=== PATIENT | male | born 1995 | race Caucasian/White ===

== ENCOUNTER 2021-07-04 10:29 | Emergency (ER) | payer SELFPAY ==
--- NOTE | 2021-07-04 11:02 | EDM.PDOC ---
ED HPI GENERAL MEDICAL PROBLEM - General Chief Complaint: Lower Extremity Injury/Pain Stated Complaint: SLIPPED AND INJURED BACK AND LEFT ANKLE Time Seen by Provider: 07/04/21 10:45 Source of Information: Reports: Patient History Limitations: Reports: No Limitations - History of Present Illness INITIAL COMMENTS - FREE TEXT/NARRATIVE: patient presented to the ER with a c/o LE pain after he fell down the stairs. He reports that he slipped over the last few steps - twisted his left foot and landed on his lower back and buttock. Was able to stand up and walk but with some discomfort. Able to put weight on it. This occurred 3 hrs ago. no head injury. Didn't take anything for pain and doesn't want anything. Onset: Sudden Duration: Hour(s): (3) Location: Reports: Back, Lower Extremity, Left Quality: Reports: Dull Severity: Mild Improves with: Reports: Immobilization Worsens with: Reports: Movement Left Ankle Pain Score (Numeric/FACES): 6 - Related Data Allergies Allergy/AdvReac Type Severity Reaction Status Date / Time Sulfa (Sulfonamide Allergy Redness Verified 07/04/21 11:11 Antibiotics) Home Meds: Home Meds NK [No Known Home Meds] 07/04/21 [History] Review of Systems - Review of Systems Review Of Systems: See Below Constitutional: Reports: No Symptoms Respiratory: Reports: No Symptoms Cardiovascular: Reports: No Symptoms GI/Abdominal: Reports: No Symptoms Skin: Reports: No Symptoms Neurological: Reports: No Symptoms Psychiatric: Reports: No Symptoms ED EXAM, GENERAL - Physical Exam Exam: See Below Exam Limited By: No Limitations General Appearance: Alert, WD/WN, No Apparent Distress Eye Exam: Bilateral Eye: EOMI Head: Atraumatic Respiratory/Chest: No Respiratory Distress Cardiovascular: Normal Peripheral Pulses GI/Abdominal: Normal Bowel Sounds Back Exam: Normal Inspection, Decreased Range of Motion, Muscle Spasm, Paraspinal Tenderness. No: Vertebral Tenderness Extremities: Other (left foot pain, no deformity, limied ROM due to pain. ) Neurological: Alert Course - Vital Signs Last Recorded V/S: Last Vital Signs Temp 36.6 C 07/04/21 10:53 Pulse 62 07/04/21 10:53 Resp 16 07/04/21 10:53 BP 124/88 07/04/21 10:53 Pulse Ox 98 07/04/21 10:53 - Orders/Labs/Meds Orders: Active Orders 24 hr Category Date Time Status Ankle Min 3V Lt [CR] Stat Exams 07/04/21 10:54 Taken Lumbar Spine 2 or 3V [CR] Stat Exams 07/04/21 10:53 Ordered - Re-Assessments/Exams Free Text/Narrative Re-Assessment/Exam: xrays left ankle - no e/o dislocation of fracture xrays lumbar spine - no acute findings Departure - Departure Time of Disposition: 11:59 Disposition: Home, Self-Care 01 Condition: Good Clinical Impression: Ankle sprain Qualifiers: Encounter type: initial encounter Involved ligament of ankle: other ligament Laterality: left Qualified Code(s): S93.492A - Sprain of other ligament of left ankle, initial encounter Low back pain Qualifiers: Chronicity: acute Back pain laterality: bilateral Sciatica presence: without sciatica Qualified Code(s): M54.5 - Low back pain - Discharge Information *PRESCRIPTION DRUG MONITORING PROGRAM REVIEWED*: Not Applicable *COPY OF PRESCRIPTION DRUG MONITORING REPORT IN PATIENT DYLLAN: Not Applicable Instructions: Ankle Sprain, [id number] Referrals: PCP,None [Primary Care Provider] - Forms: ED Department Discharge Additional Instructions: - apply ice on the affected area - take tylenol for pain as needed - follow up with your PCP in 5-10 days if any concerns Sepsis Event Note (ED) - Focused Exam Vital Signs: Vital Signs Temp Pulse Resp BP Pulse Ox 07/04/21 10:53 36.6 C 62 16 124/88 98 - Problem List & Annotations (1) Ankle sprain SNOMED Code(s): 12070879 Code(s): S93.409A - SPRAIN OF UNSP LIGAMENT OF UNSPECIFIED ANKLE, INIT ENCNTR Status: Acute Priority: Low Current Visit: Yes Qualifiers: Encounter type: initial encounter Involved ligament of ankle: other ligament Laterality: left Qualified Code(s): S93.492A - Sprain of other ligament of left ankle, initial encounter (2) Low back pain SNOMED Code(s): 803601089 Code(s): M54.5 - LOW BACK PAIN Status: Acute Priority: Low Current Visit: Yes Qualifiers: Chronicity: acute Back pain laterality: bilateral Sciatica presence: without sciatica Qualified Code(s): M54.5 - Low back pain - Problem List Review Problem List Initiated/Reviewed/Updated: Yes - My Orders Last 24 Hours: My Active Orders 07/04/21 10:53 Lumbar Spine 2 or 3V [CR] Stat 07/04/21 10:54 Ankle Min 3V Lt [CR] Stat - Assessment/Plan Last 24 Hours: My Active Orders 07/04/21 10:53 Lumbar Spine 2 or 3V [CR] Stat 07/04/21 10:54 Ankle Min 3V Lt [CR] Stat Plan: - apply ice on the affected area - take tylenol for pain as needed - follow up with your PCP in 5-10 days if any concerns
--- NOTE | 2021-07-05 08:10 | CR ---
DATE OF SERVICE: 07/04/21 CLINICAL DATA: fell down LUMBAR SPINE: No priors. There is straightening of the normal lumbar lordosis on the lateral view. This is most likely positional or due to muscle spasm. There is very slight anterior wedging of the L1, L2, and L3 vertebral bodies. This is probably congenital. No acute fracture or dislocation. No lytic or blastic bone lesions. The disc spaces appear relatively intact. There is a moderate amount of stool in the right colon. [id number] [facility]
--- NOTE | 2021-07-05 08:12 | CR ---
DATE OF SERVICE: 07/04/21 CLINICAL DATA: fell LEFT ANKLE: No acute fracture or dislocation. No lytic or blastic bone lesions. [id number] [facility]
== END 2021-07-04 12:00 | disposition home or self-care (01) ==
LOC: LB.ED 10:29
DX: S93.492A Sprain of other ligament of left ankle, initial encounter (principal); M54.5 Low back pain; Z88.2 Allergy status to sulfonamides; W10.9XXA Fall (on) (from) unspecified stairs and steps, initial encounter
CPT/HCPCS: 72100; 73610-LT; 99283-25

== ENCOUNTER 2021-10-21 14:15 | Emergency (ER) | payer SELFPAY ==
--- NOTE | 2021-10-21 14:44 | EDM.PDOC ---
ED HPI GENERAL MEDICAL PROBLEM - General Chief Complaint: ENT Problem Stated Complaint: sinus infection Time Seen by Provider: 10/21/21 14:30 Source of Information: Reports: Patient, RN Notes Reviewed History Limitations: Reports: No Limitations - History of Present Illness INITIAL COMMENTS - FREE TEXT/NARRATIVE: This patient presents to the emergency department for evaluation of runny nose and cough. He states he has been sick for 3 days and it started with a runny nose and sneezing. He now has a coarse cough with it. He is also complaining of some facial tenderness. He has not had a fever with this. He denies ear pain, sore throat, chest pain. He does not have a headache, appetite is fair and he is drinking fluids well. Has had no vomiting or diarrhea. He denies other symptoms or concerns. - Related Data Allergies Allergy/AdvReac Type Severity Reaction Status Date / Time Sulfa (Sulfonamide Allergy Redness Verified 10/21/21 14:35 Antibiotics) Home Meds: Home Meds NK [No Known Home Meds] 07/04/21 [History] Past Medical History - Past Health History Medical/Surgical History: Denies Medical/Surgical History Other Musculoskeletal History: previous back sprain several years ago Social & Family History - Family History Family Medical History: No Pertinent Family History - Caffeine Use Caffeine Use: Reports: None ED ROS ENT - Review of Systems Review Of Systems: Comprehensive ROS is negative, except as noted in HPI. ED EXAM, ENT - Physical Exam Exam: See Below Exam Limited By: No Limitations General Appearance: Alert, No Apparent Distress Eye Exam: Bilateral Eye: EOMI, Normal Inspection, PERRL Ears: Normal External Exam, Normal Canal, Hearing Grossly Normal, Normal TMs Nose: Normal Inspection, Other (Thick cloudy nasal drainage) Mouth/Throat: Normal Inspection, Pharyngeal Erythema (Mild), Throat Pain. No: Throat Swelling, Tonsillar Erythema, Tonsillar Exudates, Tonsillar Swelling Head: Atraumatic, Normocephalic Neck: Normal Inspection, Supple, Non-Tender, Full Range of Motion. No: Lymphadenopathy (R), Lymphadenopathy (L) Respiratory/Chest: No Respiratory Distress, Lungs Clear, Normal Breath Sounds, N o Accessory Muscle Use Cardiovascular: Regular Rate, Rhythm Course - Vital Signs Last Recorded V/S: Last Vital Signs Temp 36.9 C 10/21/21 14:33 Pulse 82 10/21/21 14:33 Resp 20 01/01/22 14:33 BP 121/89 10/21/21 14:33 Pulse Ox 100 10/21/21 14:33 - Orders/Labs/Meds Labs: Laboratory Tests 10/21/21 Range/Units 14:40 SARS-CoV-2 RNA (NAYE) Negative (NEGATIVE) - Re-Assessments/Exams Free Text/Narrative Re-Assessment/Exam: This patient presents to the emergency department for evaluation of nasal congestion and a cough. This is consistent with an upper respiratory tract infections.. There are no signs at this point of other serious bacterial infection such as otitis media, retropharyngeal abscess, epiglottitis, peritonsillar abscess, strep pharyngitis, pneumonia, sinusitis, meningitis, or bacteremia. A swab for Covid was negative. Given his clear lungs, lack of fever, no hypoxia no respiratory distress I do not feel that he needs a chest x- ray at this point as the probability of pneumonia is very unlikely. There are no concerning gastrointestinal problems and no signs of dehydration. He should follow-up with his primary care provider as needed or return to the emergency department if he gets worse. 10/22/21 10:29 Departure - Departure Time of Disposition: 14:46 Disposition: Home, Self-Care 01 Condition: Good Clinical Impression: URI (upper respiratory infection) - Discharge Information *PRESCRIPTION DRUG MONITORING PROGRAM REVIEWED*: Not Applicable *COPY OF PRESCRIPTION DRUG MONITORING REPORT IN PATIENT DYLLAN: Not Applicable Instructions: Viral Respiratory Infection, [id number] Referrals: PCP,None [Primary Care Provider] - Forms: ED Department Discharge Care Plan Goals: We will call with results of covid test. Sepsis Event Note (ED) - Evaluation Sepsis Screening Result: No Definite Risk
== END 2021-10-21 15:00 | disposition home or self-care (01) ==
LOC: LB.ED 14:15
DX: J06.9 Acute upper respiratory infection, unspecified (principal); Z88.2 Allergy status to sulfonamides; Z20.822 Contact with and (suspected) exposure to COVID-19
CPT/HCPCS: 99283; U0002

== ENCOUNTER 2022-03-06 10:42 | Emergency (ER) | payer SELFPAY ==
[2022-03-06 11:00] VITALS: BP 117/85; PULSE 80
== END 2022-03-06 11:16 | disposition home or self-care (01) ==
LOC: LB.ED 10:42
DX: H65.23 Chronic serous otitis media, bilateral (principal); Z88.2 Allergy status to sulfonamides
CPT/HCPCS: 99281; 99282

== ENCOUNTER 2022-04-09 08:29 | Emergency (ER) | payer SELFPAY | END 2022-04-09 09:05 | disposition home or self-care (01) | LOC: LB.ED 08:29 | DX: R21 Rash and other nonspecific skin eruption (principal); Z88.2 Allergy status to sulfonamides; W57.XXXA Bitten or stung by nonvenomous insect and other nonvenomous arthropods, initial encounter | CPT/HCPCS: 99281; 99282 ==

== ENCOUNTER 2022-06-08 07:09 | Emergency (ER) | payer SELFPAY ==
[2022-06-08] MEDS: Ketorolac 10 MG Tab PO ONE (07:39)
== END 2022-06-08 07:46 | disposition home or self-care (01) ==
LOC: LB.ED 07:09
DX: S46.911A Strain of unspecified muscle, fascia and tendon at shoulder and upper arm level, right arm, initial encounter (principal); Z88.2 Allergy status to sulfonamides; X50.0XXA Overexertion from strenuous movement or load, initial encounter
CPT/HCPCS: 99283; A9270; 99281

== ENCOUNTER 2022-06-09 11:43 | Emergency (ER) | payer SELFPAY | END 2022-06-09 12:09 | disposition home or self-care (01) | LOC: LB.ED 11:43 | DX: F41.9 Anxiety disorder, unspecified (principal); Z88.2 Allergy status to sulfonamides | CPT/HCPCS: 99281; 99283 ==

== ENCOUNTER 2022-06-18 18:55 | Emergency (ER) | payer SELFPAY ==
[2022-06-18] MEDS: HYDROmorphone 2 MG/ML SDV IVPUSH ONE (19:43)
[2022-06-18] MEDS: HYDROmorphone 2 MG/ML Syringe ONE (19:43)
[2022-06-18 19:52] LABS: ESTIMATED GFR 99 mL/min (>60)
[2022-06-18] MEDS ORDERED: Dextrose 5%-0.9% NaCl with KCl 1,000 ML IV SCH (20:50)
[2022-06-18] MEDS: D5 1/2 NS w/ 20 mEq/L KCl 1,000 ML IV SCH (20:55)
[2022-06-18] MEDS: Ondansetron 4 MG/2 ML SDV IVPUSH ONE (21:20)
[2022-06-18] MEDS: D5 1/2 NS w/ 20 mEq/L KCl 1,000 ML ONE (21:31)
[2022-06-18] MEDS: Ondansetron 4 MG/2 ML SDV ONE (21:41)
[2022-06-18] MEDS ORDERED: HYDROmorphone 2 MG/ML Syringe IVPUSH PRN (22:50)
[2022-06-18] MEDS ORDERED: Ondansetron 4 MG/2 ML SDV IVPUSH PRN (22:50)
== END 2022-06-19 08:10 | disposition home or self-care (01) ==
LOC: LB.ED 18:55
DX: R10.10 Upper abdominal pain, unspecified (principal); R11.2 Nausea with vomiting, unspecified
CPT/HCPCS: 36415; 71045; 74178; 80053; 81001; 82150; 83690; 85025; 96365; 96366; 96375; 99282; 99284-25; J1170; J2405; J3480

== ENCOUNTER 2023-02-28 18:28 | Emergency (ER) | payer SELFPAY | END 2023-02-28 19:25 | disposition home or self-care (01) | LOC: LB.ED 18:28 | DX: R04.0 Epistaxis (principal); R51.9 Headache, unspecified; Z88.2 Allergy status to sulfonamides | CPT/HCPCS: 99282; 99283 ==

== ENCOUNTER 2023-03-11 11:24 | Emergency (ER) | payer SELFPAY | END 2023-03-11 11:52 | disposition home or self-care (01) | LOC: LB.ED 11:24 | DX: M60.9 Myositis, unspecified (principal); Z88.2 Allergy status to sulfonamides | CPT/HCPCS: 99283 ==

== ENCOUNTER 2023-03-13 21:48 | Emergency (ER) | payer SELFPAY ==
[2023-03-13] MEDS ORDERED: methylPREDNISolone Sodium Succinate 125 MG/2 ML SDV IM ONE (22:07)
[2023-03-13] MEDS ORDERED: methylPREDNISolone Sodium Succinate 125 MG/2 ML SDV ONE (22:09)
== END 2023-03-13 22:17 | disposition home or self-care (01) ==
LOC: LB.ED 21:48
DX: S40.869A Insect bite (nonvenomous) of unspecified upper arm, initial encounter (principal); S80.869A Insect bite (nonvenomous), unspecified lower leg, initial encounter; Z88.2 Allergy status to sulfonamides; W57.XXXA Bitten or stung by nonvenomous insect and other nonvenomous arthropods, initial encounter
CPT/HCPCS: 96372; 99281; J2930

== ENCOUNTER 2023-03-16 11:53 | Emergency (ER) | payer SELFPAY ==
[2023-03-16] MEDS ORDERED: Ondansetron 4 MG Tab.DIS PO ONE (12:41)
== END 2023-03-16 13:27 | disposition home or self-care (01) ==
LOC: LB.ED 11:53
DX: R11.2 Nausea with vomiting, unspecified (principal)
CPT/HCPCS: 99283; Q0162

== ENCOUNTER 2023-03-25 11:55 | Emergency (ER) | payer MEDICAID ==
[2023-03-25] MEDS ORDERED: Ketorolac 60 MG/2 ML SDV ONE (12:18)
[2023-03-25] MEDS ORDERED: Ketorolac 60 MG/2 ML SDV IM ONE (12:20)
== END 2023-03-25 12:25 | disposition home or self-care (01) ==
LOC: LB.ED 11:55
DX: S39.012A Strain of muscle, fascia and tendon of lower back, initial encounter (principal); Z88.2 Allergy status to sulfonamides; X50.0XXA Overexertion from strenuous movement or load, initial encounter; Y93.E9 Activity, other interior property and clothing maintenance
CPT/HCPCS: 96372; 99283; J1885

== ENCOUNTER 2024-04-29 20:51 | Emergency (ER) | payer SELFPAY ==
[2024-04-29] MEDS ORDERED: Naloxone 2 MG/2 ML Syringe IVPUSH PRN (21:12)
[2024-04-29] MEDS: Sodium Chloride 0.9% 1,000 ML IV ONE (21:18)
[2024-04-29] MEDS: Pantoprazole 40 MG Vial IVPUSH ONE (21:24)
[2024-04-29] MEDS: HYDROmorphone 2 MG/ML Syringe IVPUSH ONE (21:27)
[2024-04-29] MEDS: HYDROmorphone 2 MG/ML Syringe ONE (21:28)
[2024-04-29] MEDS: Pantoprazole 40 MG Vial ONE (21:28)
[2024-04-29 21:31] LABS: BASOPHILS ABSOLUTE AUTO 0.02 K/uL (0.02-0.10); BASOPHILS PERCENT AUTO 0.1 % (0.0-0.5); EOSINOPHILS ABSOLUTE AUTO 0.01 K/uL (0.04-0.40); EOSINOPHILS PERCENT AUTO 0.1 % (1.0-5.0); HEMATOCRIT 45.7 % (40.0-54.0); HEMOGLOBIN 16.1 g/dL (13.0-18.0); LYMPHOCYTES ABSOLUTE AUTO 1.11 K/uL (1.50-4.00); LYMPHOCYTES PERCENT AUTO 7.6 % (20.0-40.0); MEAN CORPUSCULAR HEMOGLOBIN 31.4 pg (27.0-32.0); MEAN CORPUSCULAR HGB CONC 35.2 g/dL (31.0-35.0); MEAN CORPUSCULAR VOLUME 89 fL (76-96); MEAN PLATELET VOLUME 9.7 fL (6.0-10.0); MONOCYTES ABSOLUTE AUTO 0.44 K/uL (0.20-0.80); NEUTROPHILS ABSOLUTE AUTO 13.05 K/uL (2.00-7.50); NEUTROPHILS PERCENT AUTO 89.2 % (45.0-70.0); PLATELET COUNT,PLT 244 K/uL (150-400); RED BLOOD CELL COUNT 5.13 M/uL (4.50-6.50); RED CELL DISTRIBUTION WIDTH 12.5 % (11.0-16.0); WHITE BLOOD CELL COUNT,WBC 14.6 K/uL (4.0-11.0)
[2024-04-29] MEDS: Ondansetron 4 MG/2 ML SDV ONE ×2 (21:33→21:38)
[2024-04-29] MEDS: Ondansetron 4 MG/2 ML SDV IVPUSH ONE (21:33)
[2024-04-29 21:49] LABS: A/G RATIO 1.5 (0.8-2.0); ALBUMIN 4.9 g/dL (3.4-5.0); ANION GAP 17.3 mmol/L (5.0-15.0); BILIRUBIN TOTAL 0.7 mg/dL (0.0-1.0); BUN/CREATININE RATIO 11.3 (6-25); CALCIUM 9.8 mg/dL (8.5-10.1); CARBON DIOXIDE,CO2 25.6 mmol/L (21.0-32.0); CREATININE 1.06 mg/dL (0.70-1.30); EST CRCL DRUG DOSING (CG) 108.08 mL/min; POTASSIUM,K 3.9 mmol/L (3.5-5.1); PROTEIN TOTAL,TP 8.2 g/dL (6.4-8.2)
[2024-04-29 22:30] LABS: APPEARANCE,URINE SLIGHTLY CLOUDY (CLEAR); BILIRUBIN,URINE SMALL (NEGATIVE); COLOR,URINE YELLOW; GLUCOSE,URINE NEGATIVE (NEGATIVE); KETONES,URINE >=160 mg/dL (NEGATIVE); LEUKOCYTE ESTERASE,URINE NEGATIVE (NEGATIVE); NITRITE,URINE NEGATIVE (NEGATIVE); OCCULT BLOOD,URINE NEGATIVE (NEGATIVE); PROTEIN,URINE 30 mg/dL (NEGATIVE); UROBILINOGEN,URINE 0.2 E.U./dL (0.2-1.0)
[2024-04-29 22:37] LABS: MUCUS,URINE MANY /HPF; RBC,URINE 0-5 /HPF; WBC,URINE 0-5 /HPF
[2024-04-29 22:38] LABS: AMPHETAMINES SCREEN, URINE NEGATIVE (NEGATIVE); BARBITURATE SCREEN,URINE NEGATIVE (NEGATIVE); BENZODIAZEPINES SCREEN,URINE NEGATIVE (NEGATIVE); METHADONE SCREEN, URINE NEGATIVE (NEGATIVE); METHAMPHETAMINES SCREEN, URINE NEGATIVE (NEGATIVE); OXYCODONE SCREEN,URINE NEGATIVE (NEGATIVE); THC SCREEN,URINE 50 NG/ML POSITIVE (NEGATIVE)
[2024-04-29 23:10] VITALS: BP 126/74; PULSE 50
== END 2024-04-29 22:55 | disposition home or self-care (01) ==
LOC: LB.ED 20:51
DX: K29.00 Acute gastritis without bleeding (principal); E86.0 Dehydration
CPT/HCPCS: 36415; 74176; 80053; 80307; 81001; 83605; 85025; 96361; 96374; 96375; 99285-25; J1170; J2405; J7030

== ENCOUNTER 2024-11-25 06:59 | Emergency (ER) | payer SELFPAY ==
[2024-11-25] MEDS: Ketorolac 15 MG/ML SDV IM ONE (07:40)
[2024-11-25 08:18] LABS: INFLUENZA A NAA NEGATIVE (NEGATIVE); INFLUENZA B NAA NEGATIVE (NEGATIVE); RESPIRATORY SYNCYTIAL VIR NAA NEGATIVE (NEGATIVE)
[2024-11-25 08:20] LABS: CORONAVIRUS COVID-19 NAA NEGATIVE (NEGATIVE)
== END 2024-11-25 08:42 | disposition home or self-care (01) ==
LOC: MERGE 06:59 → LB.ED 06:59
DX: J06.9 Acute upper respiratory infection, unspecified (principal); Z88.2 Allergy status to sulfonamides; Z79.899 Other long term (current) drug therapy
CPT/HCPCS: 0241U; 96372; 99284; J1885

== ENCOUNTER 2024-11-27 15:34 | Emergency (ER) | payer SELFPAY ==
[2024-11-27] MEDS: Ondansetron 4 MG Tab.DIS PO ONE (15:59)
[2024-11-27] MEDS: Acetaminophen 325 MG Tab PO ONE (15:59)
== END 2024-11-27 16:41 | disposition home or self-care (01) ==
LOC: LB.ED 15:34
DX: S06.0X0A Concussion without loss of consciousness, initial encounter (principal); Z88.2 Allergy status to sulfonamides; W00.0XXA Fall on same level due to ice and snow, initial encounter
CPT/HCPCS: 70450; 99284; A9270-GY; Q0162

== ENCOUNTER 2024-11-28 10:09 | Emergency (ER) | payer SELFPAY | END 2024-11-28 11:00 | disposition home or self-care (01) | LOC: LB.ED 10:09 | DX: S09.90XD Unspecified injury of head, subsequent encounter (principal); Z88.2 Allergy status to sulfonamides; W00.0XXD Fall on same level due to ice and snow, subsequent encounter | CPT/HCPCS: 70450; 99284 ==

== ENCOUNTER 2024-12-17 18:41 | Emergency (ER) | payer SELFPAY ==
[2024-12-17 19:54] LABS: BASOPHILS ABSOLUTE AUTO 0.04 K/uL (0.02-0.10); BASOPHILS PERCENT AUTO 0.6 % (0.0-0.5); EOSINOPHILS ABSOLUTE AUTO 0.24 K/uL (0.04-0.40); EOSINOPHILS PERCENT AUTO 3.6 % (1.0-5.0); HEMATOCRIT 44.1 % (40.0-54.0); HEMOGLOBIN 15.4 g/dL (13.0-18.0); LYMPHOCYTES ABSOLUTE AUTO 1.73 K/uL (1.50-4.00); MEAN CORPUSCULAR HGB CONC 34.9 g/dL (31.0-35.0); MEAN CORPUSCULAR VOLUME 89 fL (76-96); MEAN PLATELET VOLUME 9.8 fL (6.0-10.0); MONOCYTES ABSOLUTE AUTO 0.48 K/uL (0.20-0.80); MONOCYTES PERCENT AUTO 7.2 % (3.0-10.0); NEUTROPHILS ABSOLUTE AUTO 4.17 K/uL (2.00-7.50); NEUTROPHILS PERCENT AUTO 62.6 % (45.0-70.0); PLATELET COUNT,PLT 209 K/uL (150-400); RED BLOOD CELL COUNT 4.96 M/uL (4.50-6.50); RED CELL DISTRIBUTION WIDTH 12.2 % (11.0-16.0); WHITE BLOOD CELL COUNT,WBC 6.7 K/uL (4.0-11.0)
[2024-12-17] MEDS ORDERED: Amoxicillin 500 MG Cap ONE (20:00)
[2024-12-17 20:06] LABS: A/G RATIO 1.4 (0.8-2.0); ALANINE AMINOTRANSFERASE,ALT 20 U/L (12-78); ALBUMIN 4.4 g/dL (3.4-5.0); ALKALINE PHOSPHATASE 81 U/L (46-116); ASPARTATE AMNIOTRANSFERASE,AST 16 U/L (15-37); BILIRUBIN TOTAL 0.5 mg/dL (0.0-1.0); BLOOD UREA NITROGEN,BUN 9 mg/dL (8-26); CALCIUM 9.2 mg/dL (8.5-10.1); CHLORIDE,CL 101 mmol/L (98-107); EST CRCL DRUG DOSING (CG) 113.56 mL/min; ESTIMATED GFR 105 mL/min (>60); GLUCOSE RANDOM 93 mg/dL (74-100); MAGNESIUM 1.8 mg/dL (1.8-2.4); PROTEIN TOTAL,TP 7.5 g/dL (6.4-8.2); SODIUM,NA 140 mmol/L (136-145)
[2024-12-21 15:18] LABS: TROPONIN I HIGH SENSITIVITY < 4.0 pg/ml (<=60.4)
== END 2024-12-17 20:28 | disposition home or self-care (01) ==
LOC: LB.ED 18:41
DX: J01.00 Acute maxillary sinusitis, unspecified (principal); R94.31 Abnormal electrocardiogram [ECG] [EKG]; Z88.2 Allergy status to sulfonamides
CPT/HCPCS: 36415; 71045; 80053; 83735; 84484; 85025; 93005; 93010; 99283; 99284; A9270-GY

== ENCOUNTER 2024-12-28 16:00 | Emergency (ER) | payer SELFPAY ==
[2024-12-28 16:46] LABS: HEMATOCRIT 43.6 % (40.0-54.0); HEMOGLOBIN 14.9 g/dL (13.0-18.0); MEAN CORPUSCULAR HEMOGLOBIN 31.1 pg (27.0-32.0); MEAN CORPUSCULAR HGB CONC 34.2 g/dL (31.0-35.0); MEAN PLATELET VOLUME 9.6 fL (6.0-10.0); RED BLOOD CELL COUNT 4.79 M/uL (4.50-6.50); RED CELL DISTRIBUTION WIDTH 12.5 % (11.0-16.0); WHITE BLOOD CELL COUNT,WBC 5.4 K/uL (4.0-11.0)
[2024-12-28 17:07] LABS: ANION GAP 11.3 mmol/L (5.0-15.0); BUN/CREATININE RATIO 10.2 (6-25); CALCIUM 9.5 mg/dL (8.5-10.1); CARBON DIOXIDE,CO2 30.8 mmol/L (21.0-32.0); CREATININE 0.98 mg/dL (0.70-1.30); EST CRCL DRUG DOSING (CG) 115.87 mL/min; POTASSIUM,K 4.1 mmol/L (3.5-5.1)
[2024-12-28 17:12] LABS: PHOSPHORUS 2.7 mg/dL (2.5-4.9)
[2024-12-28 17:14] LABS: C-REACTIVE PROTEIN 1.5 mg/L (<5.0)
== END 2024-12-28 17:37 | disposition home or self-care (01) ==
LOC: LB.ED 16:00
DX: F41.9 Anxiety disorder, unspecified (principal); Z88.2 Allergy status to sulfonamides
CPT/HCPCS: 36415; 80048; 83735; 84100; 84484; 85027; 86140; 93005; 93010; 99283; 99285

== ENCOUNTER 2025-01-09 03:44 | Emergency (ER) | payer SELFPAY ==
[2025-01-09] MEDS ORDERED: traMADol 50 MG Tab ONE (04:30)
== END 2025-01-09 04:55 | disposition home or self-care (01) ==
LOC: LB.ED 03:44
DX: S60.221A Contusion of right hand, initial encounter (principal); M79.671 Pain in right foot; Z88.2 Allergy status to sulfonamides; Z79.899 Other long term (current) drug therapy; W20.8XXA Other cause of strike by thrown, projected or falling object, initial encounter; Y93.89 Activity, other specified
CPT/HCPCS: 73130-50; 73630-RT; 99283; A9270-GY